=== PATIENT | female | born 2000 | race Caucasian/White ===

== ENCOUNTER 2020-10-12 22:03 | Inpatient (IN) ==
[2020-10-12] MEDS ORDERED: SODIUM CHLORIDE 0.9% 1000ML 1,000 ML IV STA (22:22)
[2020-10-12] MEDS ORDERED: KETOROLAC TROMETHAMINE 15 MG/ML VIAL IV STA (22:22)
--- NOTE | 2020-10-12 22:35 | Emergency Department Note ---
History of Present Illness General Chief complaint: Fever Stated complaint: BACK PAIN, NAUSEA, FEVER, LEG CRAMPS Time Seen by Provider: 10/12/20 22:10 Source: patient Mode of arrival: ambulatory Limitations: no limitations History of Present Illness Maximum Pain Intensity: 8 This patient is a 20-year-old female who presents to the emergency department for evaluation of fever and back pain. She states that she started a new control pill 1 month ago. She states that her period started 2 to 3 days ago. She states that since starting her period, she has had bad pain in her right lower back/flank. She does report she has some pain in the right lower abdomen with certain movements/sneezing or laughing. She has also been nauseous, lightheaded and feeling faint. She has felt intermittently hot and cold and feels very shaky. She admits to a history of anxiety and feels like some of the shakiness may be due to this. She states that her legs have felt crampy tonight. She has had a temperature up to 101 F. Patient has a history of asthma but states she is otherwise healthy. She denies urinary symptoms, trouble breathing, or flulike symptoms. She has been fully vaccinated for COVID-19. Home Medications Medication Instructions Recorded Confirmed Type albuterol sulfate [Ventolin HFA] 2 puff INHALATION DIRECTED PRN 08/05/18 10/12/20 History norethindrone-e.estradiol-iron 1 tab PO DAILY 08/05/18 10/12/20 History [[facility] Fe 07/29 ()] Allergies Allergy/AdvReac Type Severity Reaction Status Date / Time No Known Drug Allergies Allergy . Verified 10/13/20 03:48 Past Med/Surg History Medical History (Updated 10/13/20 @ 06:37 by Ashley Berkowitz PA-C) Asthma No known problems Surgical History No significant past surgical history Family History Other No known problems Social History Smoking Status: Never smoker Hx Alcohol Use: Yes Alcohol type: hard liquor Hx Substance Use: No Preferred Language: Nigerien Communication Ability: Effective Beliefs That Will Affect Care: None Current Living Situation: Other Current Living Situation Comment: lives with friends Feels Safe at Home: Yes Safety Concerns: Feels Safe At This Time Review of Systems A total of 10 systems reviewed and were otherwise negative Physical Exam Vital Signs Vital Signs - 24 hr 10/12/20 22:05 10/12/20 22:10 10/12/20 22:55 Temperature 37.9 C H Temperature Source Temporal Artery Scan Pulse Rate 142 H 108 H Pulse Rate [Apical] Pulse Rate from SpO2 Sensor 108 H Pulse Rhythm Regular Pulse Rhythm [Apical] Pulse Strength Normal Pulse Strength [Apical] Respiratory Rate 22 17 Respiratory Effort / Characteristics Non-Labored Non-Labored Spontaneous Respiratory Depth Normal Normal Respiratory Pattern Regular Regular Blood Pressure 141/86 H 142/93 H Blood Pressure [Right Arm] Blood Pressure Mean 104 109 Blood Pressure Mean [Right Arm] Blood Pressure Position Sitting Blood Pressure Position [Right Arm] Pulse Oximetry 100 100 Oxygen Delivery Method Room Air Room Air Sepsis Recent Fever Within 48 Hours Yes Sepsis New/Unexplained Change in Mental Status N/A Sepsis Action Taken by Nursing No Action Required 10/12/20 23:01 10/12/20 23:56 10/13/20 01:02 Temperature 39.6 C H 38.9 C H Temperature Source Oral Oral Pulse Rate 100 H Pulse Rate [Apical] 109 H Pulse Rate from SpO2 Sensor 102 H Pulse Rhythm Pulse Rhythm [Apical] Regular Pulse Strength Pulse Strength [Apical] Normal Respiratory Rate 17 23 Respiratory Effort / Characteristics Non-Labored Spontaneous Respiratory Depth Normal Respiratory Pattern Regular Blood Pressure 127/81 Blood Pressure [Right Arm] 142/93 H Blood Pressure Mean 96 Blood Pressure Mean [Right Arm] 109 Blood Pressure Position Blood Pressure Position [Right Arm] Sitting Pulse Oximetry 100 96 Oxygen Delivery Method Room Air Room Air Sepsis Recent Fever Within 48 Hours Sepsis New/Unexplained Change in Mental Status Sepsis Action Taken by Nursing 10/13/20 01:30 10/13/20 01:48 10/13/20 02:00 Temperature 37.9 C H Temperature Source Oral Pulse Rate 91 H 88 Pulse Rate [Apical] Pulse Rate from SpO2 Sensor 92 H Pulse Rhythm Pulse Rhythm [Apical] Pulse Strength Pulse Strength [Apical] Respiratory Rate 15 20 Respiratory Effort / Characteristics Respiratory Depth Respiratory Pattern Blood Pressure 110/82 136/84 Blood Pressure [Right Arm] Blood Pressure Mean 91 101 Blood Pressure Mean [Right Arm] Blood Pressure Position Blood Pressure Position [Right Arm] Pulse Oximetry 98 98 Oxygen Delivery Method Room Air Sepsis Recent Fever Within 48 Hours Sepsis New/Unexplained Change in Mental Status Sepsis Action Taken by Nursing VITALS: Vitals are noted on the nurse's note and reviewed by myself. GENERAL: This is a 20-year-old female, uncomfortable appearing, sitting up in bed. SKIN: The skin was without rashes. EARS: External auditory canals clear, tympanic membranes pearly andujar without erythema or effusion bilaterally. EYES: Pupils equal round and reactive to light and accommodation. NOSE: Patent, turbinates without inflammation or discharge. MOUTH: Mucous membranes moist. Tonsils are not enlarged. Pharynx without erythema or exudate. NECK: Supple without nuchal rigidity. No lymphadenopathy. HEART: Tachycardic, regular rhythm without murmurs gallops or rubs. LUNGS: Clear to auscultation bilaterally without wheezes, rales or rhonchi. ABDOMEN: Positive bowel sounds x 4. No guarding or rebound tenderness. NEURO: Patient was alert and oriented to person place and time. Course Consultations Consultation #1: Dr. Cardoso - [facility] [place] Administered Medications Acetaminophen (Acetaminophen 500 Mg Tab) 1,000 mg PO Q8H PRN PRN Reason: pain/fever Stop: 11/12/20 03:41 Last Admin: 10/13/20 03:53 Dose: 1,000 mg Documented by: [id number] Lactated Ringer's (Lr) 1,000 mls @ 100 mls/hr IV .Q10H LEXA Stop: 10/13/20 23:41 Last Admin: 10/13/20 03:53 Dose: 100 mls/hr Documented by: [id number] Piperacillin Sod/Tazobactam (Sod 3.375 gm/ Dextrose) 115 mls @ 28.75 mls/hr IV Q8H LEXA; Protocol Stop: 10/23/20 05:59 Last Infusion: 10/13/20 06:04 Dose: 28.8 mls/hr Documented by: [id number] Infusion: 10/13/20 05:51 Dose: 0 mls/hr Documented by: [id number] Admin: 10/13/20 05:50 Dose: 28.8 mls/hr Documented by: [id number] Discontinued Medications Sodium Chloride (Nss 1000ml) 1,000 mls @ 999 mls/hr IV .Q1H1M STA Stop: 10/12/20 23:22 Last Infusion: 10/12/20 23:30 Dose: 0 mls/hr Documented by: [id number] Admin: 10/12/20 23:08 Dose: 999 mls/hr Documented by: [id number] Acetaminophen (Ofirmev) 1,000 mg in 100 mls @ 400 mls/hr IV NOW STA Stop: 10/13/20 00:15 Last Infusion: 10/13/20 00:40 Dose: 0 mls/hr Documented by: [id number] Admin: 10/13/20 00:21 Dose: 400 mls/hr Documented by: [id number] Piperacillin Sod/Tazobactam Sod (Zosyn) 4.5 gm in 120 mls @ 240 mls/hr IV NOW ONE Stop: 10/13/20 01:47 Last Infusion: 10/13/20 02:25 Dose: 0 mls/hr Documented by: [id number] Admin: 10/13/20 01:55 Dose: 240 mls/hr Documented by: [id number] Sodium Chloride (Nss 1000ml) 1,000 mls @ 999 mls/hr IV .Q1H1M ONE Stop: 10/13/20 02:23 Last Infusion: 10/13/20 03:57 Dose: 0 mls/hr Documented by: [id number] Admin: 10/13/20 01:55 Dose: 999 mls/hr Documented by: [id number] Ioversol (Ioversol 100ml) 100 ml IV ONCE ONE Stop: 10/13/20 00:47 Last Admin: 10/13/20 00:47 Dose: 93 ml Documented by: [id number] Ketorolac Tromethamine (Ketorolac Tromethamine 15 Mg/Ml Vial) 15 mg IV NOW STA Stop: 10/12/20 22:23 Last Admin: 10/12/20 23:07 Dose: 15 mg Documented by: [id number] Medical Decision Making Differential Diagnosis Sepsis, UTI, pneumonia, metabolic, electrolyte abnormalities, cardiac sources, intracerebral event, toxicologic, neurologic, as well as other pathologies. Home Medications Current Medication List: was personally reviewed by me Laboratory Data Attestation: I reviewed the patient's lab results. Result diagrams: 10/12/20 22:46 10/12/20 22:46 Lab Results 10/12/20 10/12/2010/12/21 Range/Units 22:46 22:46 22:46 WBC 10.22 (4.8-10.8) K/uL RBC 4.77 (4.2-5.4) M/uL Hgb 15.0 (12.0-16.0) g/dL Hct 42.7 (37-47) % MCV 89.5 (80-100) fL MCH 31.4 (25-34) pg MCHC 35.1 (32-36) g/dL RDW Std Deviation 40.8 (36.4-46.3) fL RDW Coeff of Rayna 12.5 (11.5-14.5) % Plt Count 295 (130-400) K/uL MPV 9.8 (7.4-10.4) fL Immature Gran % (Auto) 0.2 % Neut % (Auto) 83.0 % Lymph % (Auto) 8.0 % Pepin % (Auto) 8.4 % Eos % (Auto) 0.3 % Baso % (Auto) 0.1 % Neut # (Auto) 8.48 H (1.4-6.5) K/uL Lymph # (Auto) 0.82 L (1.2-3.4) K/uL Pepin # (Auto) 0.86 H (0.11-0.59) K/uL Eos # (Auto) 0.03 (0-0.5) K/uL Baso # (Auto) 0.01 (0-0.2) K/uL Immature Gran # (Auto) 0.02 (0.00-0.02) K/uL D-Dimer 250 (0-500) ug/L FEU Sodium 134 L (136-145) mmol/L Potassium 3.5 (3.5-5.1) mmol/L Chloride 102 (98-107) mmol/L Carbon Dioxide 22 (21-32) mmol/L Anion Gap 10.0 (3-11) BUN 10 (7-18) mg/dl Creatinine 0.96 (0.6-1.2) mg/dl Est Cr Clr Drug Dosing 80.7 ml/min Est GFR ( Amer) 98.7 Est GFR (Non-Af Amer) 85.1 BUN/Creatinine Ratio 10.1 (10-20) Glucose 104 H (70-99) mg/dl Lactate (0.4-2.0) mmol/L Calcium 9.6 (8.5-10.1) mg/dl Total Bilirubin 0.6 (0.2-1) mg/dl AST 14 L (15-37) U/L ALT 28 (12-78) U/L Alkaline Phosphatase 144 H (45-117) U/L Total Protein 8.3 H (6.4-8.2) gm/dl Albumin 3.9 (3.4-5.0) gm/dl Globulin 4.4 H (2.5-4.0) gm/dl Albumin/Globulin Ratio 0.9 (0.9-2) Urine Color Urine Appearance (Clear) Urine pH (4.5-7.5) Ur Specific Mccomb (1.000-1.030) Urine Protein (Negative) Urine Glucose (UA) (Negative) Urine Ketones (Negative) Urine Blood (Negative) Urine Nitrite (Negative) Urine Bilirubin (Negative) Urine Urobilinogen (Negative) Ur Leukocyte Esterase (Negative) Urine WBC (Auto) (0-5) /hpf Urine RBC (Auto) (0-4) /hpf U Hyaline Cast (Auto) (0-5) /lpf U Epithel Cells (Auto) (0-5) /lpf Urine Bacteria (Auto) (Negative) Urine Test (Negative) POC Ur Test COVID-19 Eval Order SARS-CoV-2 (PCR) (Negative) Influenza Type A (PCR) (Neg) Influenza Type B (PCR) (Neg) RSV (RT-PCR) (Neg) 10/12/20 10/12/20 10/12/20 Range/Units 22:46 23:05 23:05 WBC (4.8-10.8) K/uL RBC (4.2-5.4) M/uL Hgb (12.0-16.0) g/dL Hct (37-47) % MCV (80-100) fL MCH (25-34) pg MCHC (32-36) g/dL RDW Std Deviation (36.4-46.3) fL RDW Coeff of Rayna (11.5-14.5) % Plt Count (130-400) K/uL MPV (7.4-10.4) fL Immature Gran % (Auto) % Neut % (Auto) % Lymph % (Auto) % Pepin % (Auto) % Eos % (Auto) % Baso % (Auto) % Neut # (Auto) (1.4-6.5) K/uL Lymph # (Auto) (1.2-3.4) K/uL Pepin # (Auto) (0.11-0.59) K/uL Eos # (Auto) (0-0.5) K/uL Baso # (Auto) (0-0.2) K/uL Immature Gran # (Auto) (0.00-0.02) K/uL D-Dimer (0-500) ug/L FEU Sodium (136-145) mmol/L Potassium (3.5-5.1) mmol/L Chloride (98-107) mmol/L Carbon Dioxide (21-32) mmol/L Anion Gap (3-11) BUN (7-18) mg/dl Creatinine (0.6-1.2) mg/dl Est Cr Clr Drug Dosing ml/min Est GFR ( Amer) Est GFR (Non-Af Amer) BUN/Creatinine Ratio (10-20) Glucose (70-99) mg/dl Lactate 2.8 H* (0.4-2.0) mmol/L Calcium (8.5-10.1) mg/dl Total Bilirubin (0.2-1) mg/dl AST (15-37) U/L ALT (12-78) U/L Alkaline Phosphatase (45-117) U/L Total Protein (6.4-8.2) gm/dl Albumin (3.4-5.0) gm/dl Globulin (2.5-4.0) gm/dl Albumin/Globulin Ratio (0.9-2) Urine Color Urine Appearance (Clear) Urine pH (4.5-7.5) Ur Specific M[place]omb (1.000-1.030) Urine Protein (Negative) Urine Glucose (UA) (Negative) Urine Ketones (Negative) Urine Blood (Negative) Urine Nitrite (Negative) Urine Bilirubin (Negative) Urine Urobilinogen (Negative) Ur Leukocyte Esterase (Negative) Urine WBC (Auto) (0-5) /hpf Urine RBC (Auto) (0-4) /hpf U Hyaline Cast (Auto) (0-5) /lpf U Epithel Cells (Auto) (0-5) /lpf Urine Bacteria (Auto) (Negative) Urine Test (Negative) POC Ur Test COVID-19 Eval Order [facility]sv at [facility] SARS-CoV-2 (PCR) NEGATIVE (Negative) Influenza Type A (PCR) Negative (Neg) Influenza Type B (PCR) Negative (Neg) RSV (RT-PCR) Negative (Neg) 10/12/20 10/12/20 10/12/20 Range/Units 23:39 23:39 23:39 WBC (4.8-10.8) K/uL RBC (4.2-5.4) M/uL Hgb (12.0-16.0) g/dL Hct (37-47) % MCV (80-100) fL MCH (25-34) pg MCHC (32-36) g/dL RDW Std Deviation (36.4-46.3) fL RDW Coeff of Rayna (11.5-14.5) % Plt Count (130-400) K/uL MPV (7.4-10.4) fL Immature Gran % (Auto) % Neut % (Auto) % Lymph % (Auto) % Pepin % (Auto) % Eos % (Auto) % Baso % (Auto) % Neut # (Auto) (1.4-6.5) K/uL Lymph # (Auto) (1.2-3.4) K/uL Pepin # (Auto) (0.11-0.59) K/uL Eos # (Auto) (0-0.5) K/uL Baso # (Auto) (0-0.2) K/uL Immature Gran # (Auto) (0.00-0.02) K/uL D-Dimer (0-500) ug/L FEU Sodium (136-145) mmol/L Potassium (3.5-5.1) mmol/L Chloride (98-107) mmol/L Carbon Dioxide (21-32) mmol/L Anion Gap (3-11) BUN (7-18) mg/dl Creatinine (0.6-1.2) mg/dl Est Cr Clr Drug Dosing ml/min Est GFR ( Amer) Est GFR (Non-Af Amer) BUN/Creatinine Ratio (10-20) Glucose (70-99) mg/dl Lactate (0.4-2.0) mmol/L Calcium (8.5-10.1) mg/dl Total Bilirubin (0.2-1) mg/dl AST (15-37) U/L ALT (12-78) U/L Alkaline Phosphatase (45-117) U/L Total Protein (6.4-8.2) gm/dl Albumin (3.4-5.0) gm/dl Globulin (2.5-4.0) gm/dl Albumin/Globulin Ratio (0.9-2) Urine Color Yellow Urine Appearance Clear (Clear) Urine pH 8.5 H (4.5-7.5) Ur Specific Mccomb 1.010 (1.000-1.030) Urine Protein Negative (Negative) Urine Glucose (UA) Negative (Negative) Urine Ketones Negative (Negative) Urine Blood 2+ H (Negative) Urine Nitrite Negative (Negative) Urine Bilirubin Negative (Negative) Urine Urobilinogen Negative (Negative) Ur Leukocyte Esterase Trace H (Negative) Urine WBC (Auto) 10-30 H (0-5) /hpf Urine RBC (Auto) 5-10 H (0-4) /hpf U Hyaline Cast (Auto) 0 (0-5) /lpf U Epithel Cells (Auto) 10-20 H (0-5) /lpf Urine Bacteria (Auto) Negative (Negative) Urine Test Negative (Negative) POC Ur Test Cancelled COVID-19 Eval Order SARS-CoV-2 (PCR) (Negative) Influenza Type A (PCR) (Neg) Influenza Type B (PCR) (Neg) RSV (RT-PCR) (Neg) 10/13/20 Range/Units 02:04 WBC (4.8-10.8) K/uL RBC (4.2-5.4) M/uL Hgb (12.0-16.0) g/dL Hct (37-47) % MCV (80-100) fL MCH (25-34) pg MCHC (32-36) g/dL RDW Std Deviation (36.4-46.3) fL RDW Coeff of Rayna (11.5-14.5) % Plt Count (130-400) K/uL MPV (7.4-10.4) fL Immature Gran % (Auto) % Neut % (Auto) % Lymph % (Auto) % Pepin % (Auto) % Eos % (Auto) % Baso % (Auto) % Neut # (Auto) (1.4-6.5) K/uL Lymph # (Auto) (1.2-3.4) K/uL Pepin # (Auto) (0.11-0.59) K/uL Eos # (Auto) (0-0.5) K/uL Baso # (Auto) (0-0.2) K/uL Immature Gran # (Auto) (0.00-0.02) K/uL D-Dimer (0-500) ug/L FEU Sodium (136-145) mmol/L Potassium (3.5-5.1) mmol/L Chloride (98-107) mmol/L Carbon Dioxide (21-32) mmol/L Anion Gap (3-11) BUN (7-18) mg/dl Creatinine (0.6-1.2) mg/dl Est Cr Clr Drug Dosing ml/min Est GFR ( Amer) Est GFR (Non-Af Amer) BUN/Creatinine Ratio (10-20) Glucose (70-99) mg/dl Lactate 1.0 (0.4-2.0) mmol/L Calcium (8.5-10.1) mg/dl Total Bilirubin (0.2-1) mg/dl AST (15-37) U/L ALT (12-78) U/L Alkaline Phosphatase (45-117) U/L Total Protein (6.4-8.2) gm/dl Albumin (3.4-5.0) gm/dl Globulin (2.5-4.0) gm/dl Albumin/Globulin Ratio (0.9-2) Urine Color Urine Appearance (Clear) Urine pH (4.5-7.5) Ur Specific Mccomb (1.000-1.030) Urine Protein (Negative) Urine Glucose (UA) (Negative) Urine Ketones (Negative) Urine Blood (Negative) Urine Nitrite (Negative) Urine Bilirubin (Negative) Urine Urobilinogen (Negative) Ur Leukocyte Esterase (Negative) Urine WBC (Auto) (0-5) /hpf Urine RBC (Auto) (0-4) /hpf U Hyaline Cast (Auto) (0-5) /lpf U Epithel Cells (Auto) (0-5) /lpf Urine Bacteria (Auto) (Negative) Urine Test (Negative) POC Ur Test COVID-19 Eval Order SARS-CoV-2 (PCR) (Negative) Influenza Type A (PCR) (Neg) Influenza Type B (PCR) (Neg) RSV (RT-PCR) (Neg) Imaging Data Attestation: I personally reviewed and interpreted this imaging study as follows: Radiologist's Impression: CT ABDOMEN & PELVIS With Contrast: No prior exam for comparison. Impression: Right-sided and possible left-sided pyelonephritis. No acute appendicitis or bowel obstruction. Clear lung bases. Normal cardiac size. Normal gallbladder and biliary system. Normal spleen, liver, pancreas and bilateral adrenal glands. Areas of the irregular attenuation with subtle hypodensities within the right renal parenchyma concerning for pyelonephritis. Mild enhancement of the wall to the proximal uterus consistent with infectious process. Possible very early early pyelonephritis within the left kidney. No hydronephrosis. Unremarkable stomach. Mild diffuse distention of the small bowel loops up to a diameter of 2.0 cm which may indicate ileus versus enteritis. Normal appendix. Anteverted uterus. No bowel obstruction. Unremarkable bony structures. No free fluid. Radiologist: Debra Thayer MD ADDENDUM - Added by Debra Thayer MD on 10/13/2020 2:15 AM (-07:00) A typing error is identified. Please disregard the following: Mild enhancement of the wall to the proximal uterus consistent with infectious process. The correct sentence is: Mild enhancement of the wall through the proximal ureter consistent with infectious process. MDM Narrative Continuous monitor car operator: Order was placed for continuous monitor car operator. Patient was placed on the monitor car operator. Patient was noted to be in sinus tachycardia at an initial rate of 140 bpm. The patient is a 20-year-old female who presents today complaining of right flank pain, vomiting and fevers. Labs revealed no leukocytosis, but patient did have an elevated lactic acid of 2.8. Patient CT scan does show evidence of pyelonephritis, although interestingly the urinalysis does not appear overtly infected. This was sent for culture. Patient given IV Zosyn empirically. She received IV normal saline at 30 mL/kg. She was given Toradol and Tylenol. [facility] the patient for further care. Impression & Plan Sepsis, Pyelonephritis Discharge Plan Visit Data Chief Complaint: Fever Stated Complaint: BACK PAIN, NAUSEA, FEVER, LEG CRAMPS ED Provider: Dayo Gusman ED Midlevel Provider: Ashley Berkowitz Discharge Problem: Sepsis, Pyelonephritis Patient Disposition: Admitted As Inpatient Discharge Instructions Interventions: ED Discharge Assessment Last Done: 10/13/20 03:03 Discharge Problem: Sepsis Qualifiers: Sepsis type: sepsis due to unspecified organism Sepsis acute organ dysfunction status: without acute organ dysfunction Qualified Code(s): A41.9 - Sepsis, unspecified organism
[2020-10-12 23:00] LABS: Basophils # (auto) 0.01 K/uL (0-0.2); Basophils % (auto) 0.1 %; Eosinophils # (auto) 0.03 K/uL (0-0.5); Eosinophils % (auto) 0.3 %; Hematocrit (blood only) 42.7 % (37-47); Immature Granulocytes # (auto) 0.02 K/uL (0.00-0.02); Immature Granulocytes % (auto) 0.2 %; Lymphocytes # (auto) 0.82 K/uL (1.2-3.4); Mean Corpuscular Hemoglobin 31.4 pg (25-34); Mean Corpuscular Hgb Conc 35.1 g/dL (32-36); Mean Corpuscular Volume 89.5 fL (80-100); Mean Platelet Volume 9.8 fL (7.4-10.4); Monocytes # (auto) 0.86 K/uL (0.11-0.59); Monocytes % (auto) 8.4 %; Neutrophils # (auto) 8.48 K/uL (1.4-6.5); Platelet Count 295 K/uL (130-400); RDW Coefficient of Variation 12.5 % (11.5-14.5); RDW Standard Deviation 40.8 fL (36.4-46.3); Red Blood Count 4.77 M/uL (4.2-5.4); White Blood Count 10.22 K/uL (4.8-10.8)
[2020-10-12 23:15] LABS: D Dimer 250 ug/L FEU (0-500)
[2020-10-12 23:21] LABS: Albumin Level 3.9 gm/dl (3.4-5.0); BUN Creatinine Ratio 10.1 (10-20); Calcium 9.6 mg/dl (8.5-10.1); Creatinine Clr Calc Pharmacy 80.7 ml/min; Est GFR (African American) 98.7; Est GFR (Non-African American) 85.1; Potassium 3.5 mmol/L (3.5-5.1)
[2020-10-12 23:24] LABS: Albumin Globulin Ratio 0.9 (0.9-2); Bilirubin,Total 0.6 mg/dl (0.2-1); Globulin 4.4 gm/dl (2.5-4.0); Total Protein 8.3 gm/dl (6.4-8.2)
[2020-10-12 23:55] LABS: Appearance Urine Clear (Clear); Bacteria Urine Automated Negative (Negative); Bilirubin Urine Negative (Negative); Blood Urine 2+ (Negative); Cast Urine Automated 0 /lpf (0-5); Color Urine Yellow; Glucose Urine UA Negative (Negative); Ketones Urine Negative (Negative); Leukocyte Esterase Urine Trace (Negative); Nitrite Urine Negative (Negative); Protein Urine Negative (Negative); Urobilinogen Urine Negative (Negative); pH Urine 8.5 (4.5-7.5)
[2020-10-13] MEDS ORDERED: ACETAMINOPHEN 1,000 MG/100 ML VIAL IV STA (00:01)
[2020-10-13 00:26] LABS: Influenza A virus by PCR Negative (Neg); Influenza B virus by PCR Negative (Neg); RSV by PCR Negative (Neg); SARS CoV2 RNA(COVID-19) InHosp NEGATIVE (Negative)
[2020-10-13 00:28] LABS: Pregnancy Test, Urine Negative (Negative)
[2020-10-13] MEDS ORDERED: OPTIRAY 320 100ml IV ONE (00:46)
[2020-10-13] MEDS ORDERED: PIPERACILLIN/TAZOBACTAM 4.5 GM/120 ML BAG IV ONE (01:18)
[2020-10-13] MEDS ORDERED: PIPERACILL/TAZOBAC CONSULT ACTIVE PRN ×2 (01:18→03:42)
[2020-10-13] MEDS ORDERED: SODIUM CHLORIDE 0.9% 1000ML 1,000 ML IV ONE ×2 (01:23→12:50)
--- NOTE | 2020-10-13 02:26 | History & Physical Report ---
Date of Service October 13, 2020 Assessment & Plan (1) Pyelonephritis: Patient is a 20 year old female with PMHx Asthma that presents with 3 day history of R low back pain with worsening progression and fever of 101F on day of admission. CT imaging of abdomen and pelvis concerning for R sided P yelonephritis. Sepsis secondary to R Pyelonephritis -CT/Ab pelvis statrad concerning for R pyelonephritis with possibly early development of L pyelonephritis -UA appears contaminated with epithelial cells, but otherwise less indicative of infection. Urine culture pending. -Would check final read and possibly discuss with radiology in regards to the possibility that the R ureter is not draining secondary to inflammation from pyelonephritis. No obvious hydroureter noted on my review of the CT scan, however, should minimal urine pass the R ureter, similar to an obstructing stone, may affect the UA into having a false negative. -Should an obstruction be seen on the final read, consider consulting Urology for possible stent placement/cystoscopy. -PID less likely based on patients history and frequent offenders should be covered with Zosyn. -Lactic 2.8 on admission, repeat 1 after fluids. -Patient fluid resuscitated the required 30ml/kg in ED with 2L NSS -Will continue hydration with LR 100ml/hr x2L -Started on Zosyn IV in the ED, continue Zosyn IV q6h -Zofran PRN nausea -Tylenol 1000mg q8H PRN for fever Asthma -Albuterol PRN Dispo: Med/Surg for IV antibiotics, suspect relatively short stay and transition to PO antibiotics as long as patients symptoms improve. FEN: Regular diet, LR 100ml/hr x2L DVT: SCDs Code: Full (2) Sepsis: (3) Asthma: History of Present Illness Chief Complaint: R back pain, fever Primary Care Provider: [facility] Patient is a 20 year old female with PMHx Asthma that presents with 3 day history of R low back pain with worsening progression and fever of 101F on day of admission. Patient notes that on 10/09/20 she started experiencing some low back pain worse on the R than L. She states that she recently switched control 1 month ago as her previous control gave her back pain and she felt that this current one was causing the same symptoms. Earlier this morning she experienced nausea which progressively worsened until around 20:00 she was having fevers, chills, and rigors. She also felt that she was having more bowel movements today. She notes that she took her temperature around 22:00 and it was 101F. Upon presentation to the ED she was found to be febrile with TMax 39.6C and was given IV tylenol and NSS boluses. She was also given Toradol for her pain. CT imaging was concerning for a R sided pyelonephritis and early onset of L sided pyelo, however, interestingly enough her UA was relatively clean and negative for acute infections. Upon my evaluation patient stated that she was feeling significantly better and that her pain had improved to a 4/10. She currently still notes fever, occasional chills, R low back pain, R low abdominal pain. She denies chest pain, SOB, headache, nausea, vomiting, diarrhea. Med Hx: Asthma Surg Hx: Bilateral inguinal hernia repair and umbilical hernia repair at age 5 Soc Hx: No tobacco or illicit drug use. Has roughly 16 shots of vodka on the weekends. Notes she is sexually active with her boyfriend alone, last coitus 10/09/20. Recently checked for STDs 1 month ago which was negative and has only been sexually active with aforementioned boyfriend since that time. No concerns of infidelity. Allergies Allergy/AdvReac Type Severity Reaction Status Date / Time No Known Drug Allergies Allergy . Verified 10/13/20 03:48 Home Medications Medication Instructions Recorded Confirmed Type albuterol sulfate [Ventolin HFA] 2 puff INHALATION DIRECTED PRN 08/05/18 10/12/20 History norethindrone-e.estradiol-iron 1 tab PO DAILY 08/05/18 10/12/20 History [Vaiden Fe 07/29 (28)] amoxicillin-pot clavulanate 1 tab PO BID 6 Days #12 tab 10/17/20 Rx [Augmentin] Past Med/Surg History Medical History (Updated 10/18/20 @ 00:08 by Jose Daniel Sebastian) Asthma Pyelonephritis Sepsis Surgical History No significant past surgical history Family History Other No known problems Social History Smoking Status: Never smoker Hx Alcohol Use: Yes Alcohol type: hard liquor Hx Substance Use: No Preferred Language: Swedish Communication Ability: Effective Beliefs That Will Affect Care: None Current Living Situation: Other Current Living Situation Comment: lives with friends Feels Safe at Home: Yes Safety Concerns: Feels Safe At This Time Assistive Devices: None Review of Systems Review of Systems: All systems reviewed & are unremarkable except as noted in Subjective Physical Exam Constitutional: well developed and well nourished; no acute distress Eyes: PERRL, conjunctivae normal, anicteric sclerae ENMT: external ear and nose normal, oropharynx normal Neck: trachea midline, no thyromegaly Respiratory: normal respiratory effort, lungs clear to auscultation Cardiovascular: RRR, no murmur, no edema Gastrointestinal (Abdomen): Inspection/Auscultation: abdomen normal to i nspection and normal bowel sounds; abdomen not distended Percussion/Palpation: + abdomen tender (slight TTP in the RLQ) and abdomen soft; no guarding and abdomen not rigid Musculoskeletal: no cyanosis or clubbing, extremities motor strength 5/5 Skin: no rashes, warm and dry Neurologic: PERRL, EOMI, accommodation nl, no face palsy, no dysarthria Psychiatric: A+Ox3, euthymic affect Genitourinary: + CVA tenderness (on the r ) Results & Data Results & Data ([facility]) Vital Signs (Past 12 Hours) Vital Signs Temp Pulse Pulse Resp BP BP Pulse Ox 10/13/20 01:48 37.9 C H 10/13/20 01:30 91 H 15 110/82 98 10/13/20 01:02 100 H 23 127/81 96 10/12/20 23:56 38.9 C H 10/12/20 23:01 39.6 C H 109 H 17 142/93 H 100 10/12/20 22:55 108 H 17 142/93 H 100 10/12/20 22:05 37.9 C H 142 H 22 141/86 H 100 Code Status & VTE Plan VTE Prophylaxis Plan VTE Prophylaxis will be ordered: Yes Supervising Physician Co-Signing Physician Notes Attending addendum: I have physically seen this patient, have supervised the medical residents activities, and agree with the H&P unless as otherwise noted. Assessment and Plan: Pyelonephritis on right side/sepsis- CT abdomen pelvis confirmed right pyelonephritis, with possible early left pyelonephritis. Urinalysis may be contaminated, will follow urine culture and sensitivities Empiric Zosyn 4.5 g IV every 8 hours Acetaminophen 650 mg p.o. every 6 hours as needed mild pain or fever Zofran 4 mg IV every 6 hours as needed She did receive 2 L normal saline in the ED. We will continue rehydration with LR at 100 mils per hour x2 L Additional diagnoses considered included PID Remaining orders and notations as noted Resident Activity Tracking Resident Involvement: Resident Care Provided Care Provided: Adult Hospital Medicine
[2020-10-13] MEDS ORDERED: ALBUTEROL HFA 8 GM INHALER INH PRN (03:42)
[2020-10-13] MEDS: ACETAMINOPHEN 500 MG TAB PO PRN ×3 (03:53→21:58)
[2020-10-13] MEDS: LACTATED RINGER'S 1,000 ML IV SCH ×2 (03:53→15:08)
[2020-10-13] MEDS: PIPERACILLIN/TAZOBACTAM 3.375 GM in DEXTROSE 5% 100 ML IV SCH ×3 (05:50→21:52)
--- NOTE | 2020-10-13 06:41 | Hospitalist Progress Note ---
Date of Service October 13, 2020 Assessment & Plan (1) Pyelonephritis: Patient is a 20 year old female with PMHx Asthma that presents with 3 day history of R low back pain with worsening progression and fever of 101F on day of admission. CT imaging of abdomen and pelvis concerning for R sided P yelonephritis. Sepsis secondary to R Pyelonephritis -CT/Ab pelvis statrad concerning for R pyelonephritis with possibly early development of L pyelonephritis -UA appears contaminated with epithelial cells, but otherwise less indicative of infection. Urine culture pending. -Would check final read and possibly discuss with radiology in regards to the possibility that the R ureter is not draining secondary to inflammation from pyelonephritis. No obvious hydroureter noted on my review of the CT scan, however, should minimal urine pass the R ureter, similar to an obstructing stone, may affect the UA into having a false negative. -Should an obstruction be seen on the final read, consider consulting Urology for possible stent placement/cystoscopy. -PID less likely based on patients history and frequent offenders should be covered with Zosyn. -Lactic 2.8 on admission, repeat 1 after fluids. -Patient fluid resuscitated the required 30ml/kg in ED with 2L NSS -Will continue hydration with LR 100ml/hr x2L -Started on Zosyn IV in the ED, continue Zosyn IV q6h -Zofran PRN nausea -Tylenol 1000mg q8H PRN for fever Asthma -Albuterol PRN Dispo: Med/Surg for IV antibiotics, suspect relatively short stay and transition to PO antibiotics as long as patients symptoms improve. FEN: Regular diet, LR 100ml/hr x2L DVT: SCDs Code: Full Admission and Anticipated Discharge Date Admission Date: October 13, 2020 Results & Data Results & Data ([facility]) Vital Signs (Past 12 Hours) Vital Signs Temp Pulse Pulse Resp BP BP Pulse Ox 10/13/20 06:16 36.7 C 10/13/20 04:11 38.4 C H 117 H 14 156/97 H 98 10/13/20 03:00 100 10/13/20 02:00 88 20 136/84 98 10/13/20 01:48 37.9 C H 10/13/20 01:30 91 H 15 110/82 98 10/13/20 01:02 100 H 23 127/81 96 10/12/20 23:56 38.9 C H 10/12/20 23:01 39.6 C H 109 H 17 142/93 H 100 10/12/20 22:55 108 H 17 142/93 H 100 10/12/20 22:05 37.9 C H 142 H 22 141/86 H 100
--- NOTE | 2020-10-13 07:19 | CT Scan Report ---
CT abd pelvis IV con only CLINICAL HISTORY: right flank pain, fever COMPARISON STUDY: None. TECHNIQUE: The patient was scanned in a dynamic helical fashion during intravenous administration of 93 cc of Optiray 320 A dose lowering technique was utilized adhering to the principles of ALARA. CT DOSE: 351.32 mGy.cm FINDINGS: Lower chest: The heart is normal in size and configuration, without pericardial effusion. The lung ba ses and pleural spaces are clear. Liver: The contrast-enhanced liver is normal in size, contour, and attenuation. There is no intrahepa tic biliary ductal dilatation. The hepatic veins and portal veins are patent. Gallbladder: Unremarkable. Spleen: Normal in size and attenuation. Pancreas: Unremarkable. Adrenal glands: Unremarkable. Kidneys: There is heterogeneous right renal enhancement in a pattern suggestive of pyelonephritis. In addition there is mild uroepithelial enhancement of the renal pelvis and proximal ureter. No obstruc ting calculi are visualized. Bowel: There are no transition zones to indicate bowel obstruction. There are fluid-filled small ang l loops with small bowel feces. The findings likely are secondary to an ileus. An enteritis could jossie ear similar but is statistically less likely. The appendix appears normal. There is no acute divertic ulitis. Peritoneum: There is trace free pelvic fluid likely physiologic. There is no free intraperitoneal air Vasculature: The abdominal aorta is normal in course and caliber. Adenopathy: None. Pelvic viscera: The bladder, and pelvic viscera are unremarkable. Skeletal structures: No destructive osseous lesions are seen. IMPRESSION: 1. No evidence of bowel obstruction. No evidence of free air 2. Heterogeneous right renal enhancement consistent with pyelonephritis 3. No obstructing calculi identified 4. Suspected mild ileus ACT 112: Negative or not required by law. Electronically signed by: Dakota Chavarria M.D. 10/13/2020 7:17 AM
[2020-10-13] MEDS: KETOROLAC TROMETHAMINE 15 MG/ML VIAL IV PRN ×2 (08:04→15:03)
--- NOTE | 2020-10-13 11:49 | Medical Student Progress Note ---
Date of Service October 13, 2020 Assessment & Plan (1) Pyelonephritis: Sepsis secondary to pyelonephritis. Patient presented with fever, chills and right flank pain.CT scan in the ER revealed evidence of right sided pyelonephritis as well as possible left sided involvement without evidence of urinary tract obstruction Urinalysis was positive for RBCs, WBCs and trace leukocyte esterase. Urine and Blood culture is still pending Lactic acid is 1.0, down from 2.8 at admission Patient was febrile earlier this morning IV Zosyn q6 was started and would be continued Zofran PRN was added for nausea Ketorolac PRN is available for pain and fever control Once microbiology results return, antibiotic would be narrowed depending on the culture. Present on Admission?: No (2) Asthma: Mild intermittent - continue Albuterol PRN Present on Admission?: Yes (3) No known problems: Dispo: Continue IV antibiotics. anticipate d/c home in 24-48hrs Fluids: Lactated Ringer 100ml/hr x 2L Electrolyte: Electrolytes within normal limits Nutrition: Vegetarian diet, DVT: Ambulatory Code: Full Supervising Attestation Medical Student Supervision Note: I was personally present during medical student patient encounter and independently interviewed and examined the patient and verified the heredia history and physical, reviewed labs and image studies, discussed the case with Fortunato Leon and agree with the findings and care plan. Acute pyelonephritis- Continue IV abx, pain and fever control - anticipate d/c once fever subsides on oral abx. Subjective Patient is a 20 y/o F currently on hospital day 1 after having been admitted for pyelonephritis. Patient experienced a transient episode of fever & chills yesterday night and another episode this morning. She does acknowledge nausea but attributes it to not eating for the past days. Patient denies any headache, palpitations, shortness of breath, dysuria, urinary urgency, difficulty with bowel movements or difficulty with urination Review of Systems Review of Systems: All systems reviewed & are unremarkable except as noted in HPI & below Constitutional: as per Subjective / HPI Respiratory: as per Subjective / HPI Cardiovascular: as per Subjective / HPI Gastrointestinal: as per Subjective / HPI Genitourinary: as per Subjective / HPI Physical Exam Constitutional: WD/WN, vitals as above in mild distress. can't find a comfortable position to lie in. Respiratory: normal respiratory effort, lungs clear to auscultation Cardiovascular: RRR, no murmur, no edema Gastrointestinal (Abdomen): Inspection/Auscultation: abdomen normal to inspection and normal bowel sounds Percussion/Palpation: + abdomen tender (mild tenderness in the right lower quadrant) Genitourinary: + CVA tenderness (Right sided CVA tenderness) Results & Data ([facility]) Vital Signs (Past 12 Hours) Vital Signs Temp Pulse Pulse Resp BP BP Pulse Ox 10/13/20 11:25 37.2 C 103 H 18 108/72 96 10/13/20 09:18 37.9 C H 10/13/20 08:14 38.9 C H 10/13/20 07:06 37.5 C 101 H 18 114/75 100 10/13/20 06:16 36.7 C 10/13/20 04:11 38.4 C H 117 H 14 156/97 H 98 10/13/20 03:00 100 10/13/20 02:00 88 20 136/84 98 10/13/20 01:48 37.9 C H 10/13/20 01:30 91 H 15 110/82 98 10/13/20 01:02 100 H 23 127/81 96 10/12/20 23:56 38.9 C H
[2020-10-13] MEDS: MoRPHine SULFATE 2 MG/ML CARP IV PRN ×3 (12:34→21:53)
[2020-10-13] MEDS: ONDANSETRON INJ 2 MG/ML 2 ML VIAL IV PRN ×2 (12:37→22:00)
--- NOTE | 2020-10-13 13:10 | XRay Report ---
XR chest 1V portable HISTORY: 20 years-old Female Sensation of shorntess of breath acute shortness of breath COMPARISON: CT abdomen and pelvis of same day, chest radiographs 10/01/2018 TECHNIQUE: AP view of the chest. FINDINGS: Cardiomediastinal and hilar silhouettes are within normal limits. No pneumothorax, pleural effusion, airspace consolidation or overt pulmonary edema. Bones of the chest appear normal. IMPRESSION: Normal exam. ACT 112: Negative or not required by law. The above report was generated using voice recognition software. It may contain grammatical, syntax o r spelling errors. Electronically signed by: Dread Cain M.D. 10/13/2020 1:09 PM
[2020-10-13] MEDS: LORATADINE 10 MG TAB PO SCH ×2 (15:10)
[2020-10-13] MEDS ORDERED: KETOROLAC 30 MG/ML VIAL IV ONE (18:17)
[2020-10-13] MEDS: KETOROLAC 30 MG/ML VIAL IV PRN (23:16)
[2020-10-14] MEDS: PIPERACILLIN/TAZOBACTAM 3.375 GM in DEXTROSE 5% 100 ML IV SCH (06:06)
[2020-10-14 06:16] LABS: Basophils # (auto) 0.02 K/uL (0-0.2); Basophils % (auto) 0.2 %; Eosinophils # (auto) 0.02 K/uL (0-0.5); Eosinophils % (auto) 0.2 %; Hemoglobin 12.8 g/dL (12.0-16.0); Immature Granulocytes # (auto) 0.01 K/uL (0.00-0.02); Immature Granulocytes % (auto) 0.1 %; Lymphocytes # (auto) 1.73 K/uL (1.2-3.4); Lymphocytes % (auto) 15.5 %; Mean Corpuscular Hemoglobin 30.7 pg (25-34); Mean Corpuscular Hgb Conc 33.7 g/dL (32-36); Mean Corpuscular Volume 91.1 fL (80-100); Mean Platelet Volume 9.7 fL (7.4-10.4); Monocytes # (auto) 1.29 K/uL (0.11-0.59); Monocytes % (auto) 11.6 %; Neutrophils # (auto) 8.09 K/uL (1.4-6.5); Neutrophils % (auto) 72.4 %; Platelet Count 222 K/uL (130-400); RDW Coefficient of Variation 13.3 % (11.5-14.5); RDW Standard Deviation 44.4 fL (36.4-46.3); Red Blood Count 4.17 M/uL (4.2-5.4); White Blood Count 11.16 K/uL (4.8-10.8)
[2020-10-14 06:41] LABS: BUN Creatinine Ratio 8.7 (10-20); Calcium 8.4 mg/dl (8.5-10.1); Creatinine Clr Calc Pharmacy 117.4 ml/min; Est GFR (African American) 147.4; Est GFR (Non-African American) 127.2; Potassium 3.7 mmol/L (3.5-5.1)
[2020-10-14] MEDS: LORATADINE 10 MG TAB PO SCH (07:46)
[2020-10-14] MEDS: KETOROLAC 30 MG/ML VIAL IV PRN ×3 (07:48→21:01)
--- NOTE | 2020-10-14 08:59 | Medical Student Progress Note ---
Date of Service October 14, 2020 Assessment & Plan (1) Pyelonephritis: Sepsis secondary to pyelonephritis. Patient presented with fever, chills and right flank pain.CT scan in the ER revealed evidence of right sided pyelonephritis as well as possible left sided involvement without evidence of urinary tract obstruction. Urinalysis was positive for RBCs, WBCs and trace leukocyte esterase. Urine culture grew >100,00 CFU E. Coli. Sensitivities to follow. Blood culture did not grow any organism to date. WBC is 11.16, elevated from 10.22 at admission. Patient was febrile yesterday as well as today morning. IV Zosyn will be switched to IV ceftriaxone. Antibiotics may be further deescalated when sensitivities are available. Zofran PRN for nausea should be continued. Ketorolac PRN should be continued for pain and fever control. Consider IV Morphine if pain is refractory to Ketorolac. Pt's status would be monitored until she goes >24 hours without a fever. Switching to PO abx could then be considered depending on sensitivities. (2) Asthma: Mild intermittent - continue Albuterol PRN CXR performed yesterday without signs suggestive of pneumonia or fluid overload. (3) No known problems: Dispo: Continue IV antibiotics. anticipate d/c home in 24-48hrs pending blood cultures Fluids: Continue Lactated Ringer 100ml/hr given insensible loss from continued fevers Electrolyte: Electrolytes within normal limits Nutrition: Vegetarian diet DVT: Low risk for DVT given age and ambulatory status Code: Full Admission and Anticipated Discharge Date Admission Date: October 13, 2020 Supervising Attestation Medical Student Supervision Note: I was personally present during medical student patient encounter and independently interviewed and examined the patient and verified the heredia history and physical, reviewed labs and image studies, discussed the case with Fortunato Oakley and agree with the findings and care plan. Overall feeling better. Last temp spike this am. If fever free by tomorrow - anticipate d/c home. Subjective Patient is a 20 y/o F currently on HOD2 after admission for pyelonephritis. Patient states that she experienced waves of fever and chills yesterday as well as during encounter. Her back pain is still severe but becomes tolerable when she takes the ketorolac. She also acknowledges minor right abdominal pain which hasn't changed in intensity since admission. She mentions that the Zofran and Mountain Dew have helped with her nausea. Patient has also been experiencing headaches which occur when she is febrile. She hasn't had a bowel movement yet but she attributes this to not eating a lot since admission. Yesterday while she had fever, she experience mild shortness of breath which prompted her to use her albuterol inhaler. She thinks this was mainly due to her fever and chills and not necessarily an asthma exacerbation. She would like to know if her roommate/bf could come by to drop her OCPs as she starts the next pack tomorrow. Her mom is coming to visit her from [facility]. ROS: Patient denies any chest pain, shortness of breath, dysuria, hematuria, abnormal vaginal discharge, Review of Systems Constitutional: as per Subjective / HPI Respiratory: as per Subjective / HPI Cardiovascular: as per Subjective / HPI Gastrointestinal: as per Subjective / HPI Genitourinary: as per Subjective / HPI Physical Exam Constitutional: WD/WN, vitals as above + ill appearing (shaking and trembling in bed. Uncomfortable) Respiratory: normal respiratory effort, lungs clear to auscultation Cardiovascular: RRR, no murmur, no edema Gastrointestinal (Abdomen): Inspection/Auscultation: abdomen normal to inspection and normal bowel sounds Percussion/Palpation: + abdomen tender (mild tenderness in the right lower quadrant) Genitourinary: + CVA tenderness (Right sided CVA tenderness) Results & Data ([facility]) Vital Signs (Past 12 Hours) Vital Signs Temp Pulse Pulse Resp BP Pulse Ox 10/14/20 07:50 38.1 C H 10/14/20 06:56 36.6 C 95 H 18 125/82 100 10/14/20 00:49 37.8 C H 88 18 111/73 95 10/14/20 00:04 37.1 C 108 H 18 100/55 L 96 10/13/20 23:25 39.4 C H 120 H 20 105/64 97 10/13/20 21:58 39.4 C H
[2020-10-14] MEDS: MoRPHine SULFATE 2 MG/ML CARP IV PRN ×3 (09:37→19:29)
[2020-10-14] MEDS: LACTATED RINGER'S 1,000 ML IV SCH ×2 (10:35→21:00)
[2020-10-14] MEDS: cefTRIAXone SODIUM 2,000 MG in DEXTROSE 5% 50 ML IV SCH (12:00)
[2020-10-14] MEDS: ACETAMINOPHEN 500 MG TAB PO PRN (19:34)
[2020-10-15] MEDS: ACETAMINOPHEN 500 MG TAB PO PRN ×2 (04:26→17:24)
[2020-10-15] MEDS: MoRPHine SULFATE 2 MG/ML CARP IV PRN (05:03)
[2020-10-15] MEDS: LACTATED RINGER'S 1,000 ML IV SCH ×2 (07:08→17:25)
[2020-10-15] MEDS: KETOROLAC 30 MG/ML VIAL IV PRN ×3 (08:10→23:01)
--- NOTE | 2020-10-15 08:44 | Medical Student Progress Note ---
Date of Service October 15, 2020 Assessment & Plan (1) Pyelonephritis: Sepsis secondary to pyelonephritis. Patient presented with fever, chills and right flank pain. CT scan in the ER revealed evidence of right sided pyelonephritis as well as possible left sided involvement without evidence of urinary tract obstruction. Urinalysis was positive for RBCs, WBCs and trace leukocyte esterase. Urine culture grew >100,00 CFU E. Coli. Pansensitive to antibiotics Blood culture did not grow any organisms. WBC is 9.55, yesterday, it was 11.16 Patient's last measured fever was at 9:00pm yesterday with a reading of 38.5. Continue IV ceftriaxone. Antibiotics may be further deescalated to TMP/SMX once fever and chills stop. Zofran PRN for nausea should be continued. Ketorolac PRN should be continued for pain and fever control. Morphine was discontinued. Pt's status would be monitored until she goes >24 hours without a fever. Switching to PO TMP/SMX would then be considered. (2) Asthma: Mild intermittent CXR performed yesterday without signs suggestive of pneumonia or fluid overload. No acute episode of shortness of breath in the last 24 hours continue Albuterol PRN Admission and Anticipated Discharge Date Admission Date: Dispo: Continue IV antibiotics. anticipate d/c home in 24-48hrs pending blood cultures Fluids: Continue Lactated Ringer 100ml/hr given insensible loss from continued fevers Electrolyte: Electrolytes within normal limits Nutrition: Vegetarian diet DVT: Low risk for DVT given age and ambulatory status. SCD Code: Full October 13, 2020 Supervising Attestation Medical Student Supervision Note: I was personally present during medical student patient encounter and independently interviewed and examined the patient and verified the heredia history and physical, reviewed labs and image studies, discussed the case with Fortunato Oakley and agree with the findings and care plan. acute pyelonephritis - continue IV abx. anticipate d/c in am if fever free for 24hrs. Subjective Patient is a 20 y/o F currently on HOD3 after admission for pyelonephritis. Patient experienced waves of fever and chills yesterday as well as one episode around 4:00am. Patient has not had another episode since then. Patient has not had any trouble urinating, pain on urination or hematuria. She states that her back pain is still present but is better since admission. Her abdominal pain is still present as well. Patient denies any nausea and states that she has used the Zofran twice since admission and she believes it helps with her nausea. Her pain was refractory to the ketorolac so she used the morphine which she states helped with pain and discomfort. Her headaches are still present though she attributes this to dehydration. She still has not any bowel movement. She has not had any other episode of shortness of breath or felt the need to use her inhaler. she had a Zoom call with her proffesor because she was scheduled for acting auditions which she couldn't attend due to hospitalization. ROS: Patient denies any chest pain, palpitations, constipation, diarrhea, urinary urgency, abnormal vaginal discharge Review of Systems Constitutional: as per Subjective / HPI Respiratory: as per Subjective / HPI Cardiovascular: as per Subjective / HPI Gastrointestinal: as per Subjective / HPI Genitourinary: as per Subjective / HPI Physical Exam Constitutional: WD/WN, vitals as above mild back discomfort, laying comfortably in bed Respiratory: normal respiratory effort, lungs clear to auscultation Cardiovascular: RRR, no murmur, no edema Gastrointestinal (Abdomen): Inspection/Auscultation: abdomen normal to inspection and normal bowel sounds Percussion/Palpation: + abdomen tender (mild tenderness in the right lower quadrant) Genitourinary: + CVA tenderness (mild Right sided CVA tenderness) Results & Data ([facility]) Vital Signs (Past 12 Hours) Vital Signs Temp Pulse Resp BP Pulse Ox 10/15/20 07:47 37.2 C 65 16 109/72 98 10/15/20 05:21 36.8 C 10/14/20 22:58 36.3 C L 10/14/20 22:50 36.6 C 65 16 116/78 98 10/14/20 21:00 38.5 C H
[2020-10-15 08:45] LABS: Hematocrit (blood only) 35.5 % (37-47); Hemoglobin 11.7 g/dL (12.0-16.0); Mean Corpuscular Hemoglobin 30.4 pg (25-34); Mean Corpuscular Volume 92.2 fL (80-100); Mean Platelet Volume 9.8 fL (7.4-10.4); Platelet Count 202 K/uL (130-400); RDW Standard Deviation 44.5 fL (36.4-46.3); Red Blood Count 3.85 M/uL (4.2-5.4); White Blood Count 9.55 K/uL (4.8-10.8)
[2020-10-15 09:23] LABS: BUN Creatinine Ratio 7.3 (10-20); Blood Urea Nitrogen 4 mg/dl (7-18); Calcium 8.7 mg/dl (8.5-10.1); Carbon Dioxide 26 mmol/L (21-32); Chloride 108 mmol/L (98-107); Est GFR (African American) > 150.0; Est GFR (Non-African American) 137.5; Glucose 80 mg/dl (70-99); Potassium 3.4 mmol/L (3.5-5.1); Sodium 139 mmol/L (136-145)
[2020-10-15] MEDS: cefTRIAXone SODIUM 2,000 MG in DEXTROSE 5% 50 ML IV SCH (09:41)
[2020-10-15] MEDS: LORATADINE 10 MG TAB PO SCH (09:41)
[2020-10-15] MEDS ORDERED: POTASSIUM CHLORIDE CRTAB 20 MEQ TABCR PO ONE (10:15)
[2020-10-16] MEDS ORDERED: MoRPHine SULFATE 2 MG/ML CARP IV STA (02:57)
[2020-10-16] MEDS: LACTATED RINGER'S 1,000 ML IV SCH ×2 (03:03→15:51)
[2020-10-16 07:34] LABS: Hematocrit (blood only) 36.7 % (37-47); Hemoglobin 12.8 g/dL (12.0-16.0); Mean Corpuscular Hemoglobin 31.4 pg (25-34); Mean Corpuscular Hgb Conc 34.9 g/dL (32-36); Mean Corpuscular Volume 90.2 fL (80-100); Mean Platelet Volume 9.7 fL (7.4-10.4); Platelet Count 264 K/uL (130-400); RDW Coefficient of Variation 12.8 % (11.5-14.5); RDW Standard Deviation 42.2 fL (36.4-46.3); Red Blood Count 4.07 M/uL (4.2-5.4); White Blood Count 9.67 K/uL (4.8-10.8)
[2020-10-16] MEDS: KETOROLAC 30 MG/ML VIAL IV PRN ×2 (07:54→16:08)
[2020-10-16] MEDS: LORATADINE 10 MG TAB PO SCH (07:58)
--- NOTE | 2020-10-16 08:11 | Medical Student Progress Note ---
Date of Service October 16, 2020 Assessment & Plan (1) Pyelonephritis: Sepsis secondary to pyelonephritis. Patient presented with fever, chills and right flank pain. CT scan in the ER revealed evidence of right sided pyelonephritis as well as possible left sided involvement without evidence of urinary tract obstruction. Urinalysis was positive for RBCs, WBCs and trace leukocyte esterase. Urine culture grew >100,00 CFU E. Coli. Pansensitive to antibiotics Blood culture did not grow any organisms. WBC is 9.67, yesterday it was 9.55. Patient's last measured fever was this morning, with a reading of 38.5. Continue IV ceftriaxone. Antibiotics may be further deescalated to TMP/SMX once fever and chills stop. Zofran PRN for nausea should be continued. Ketorolac PRN should be continued for pain and fever control. Morphine PRN available if pain is refractory to Ketorolac. Consider switching to PO TMP/SMX after afebrile > 24 hours and consider discharge. (2) Asthma: Mild intermittent CXR performed yesterday without signs suggestive of pneumonia or fluid overload. No acute episode of shortness of breath in the last 24 hours continue Albuterol PRN Admission and Anticipated Discharge Date Admission Date: October 13, 2020 Supervising Attestation Medical Student Supervision Note: I was personally present during medical student patient encounter and independently interviewed and examined the patient and verified the heredia history and physical, reviewed labs and image studies, discussed the case with Fortunato Oakley and agree with the findings and care plan. Continue IV abx since continuing to spike fever d/c home on PO abx once fever free for 24hrs Subjective Patient is a 20 y/o F currently on HOD4 for pyelonephritis. Patient states feeling overall better since admission. She experienced another febrile episode last night. Her back pain was intolerable last night, refractory to ketorolac but well controlled with morphine. She also develop pain in her right teran last night concurrently with the back pain, which was controlled with the morphine. She had a bowel movement earlier today which she described as watery. Her headaches are still present and occur simultaneously with her fevers. ROS: Patient denies SOB, chest pain, dyspnea, constipation, dysuria, hematuria or abnormal vaginal discharge. Review of Systems Constitutional: as per Subjective / HPI Respiratory: as per Subjective / HPI Cardiovascular: as per Subjective / HPI Gastrointestinal: as per Subjective / HPI Genitourinary: as per Subjective / HPI Physical Exam Constitutional: WD/WN, vitals as above Respiratory: normal respiratory effort, lungs clear to auscultation Cardiovascular: RRR, no murmur, no edema Gastrointestinal (Abdomen): Inspection/Auscultation: abdomen normal to inspection and normal bowel sounds Percussion/Palpation: + abdomen tender (mild tenderness in the right lower quadrant) Genitourinary: + CVA tenderness (mild Right sided CVA tenderness) Results & Data ([facility]) Vital Signs (Past 12 Hours) Vital Signs Temp Pulse Resp BP Pulse Ox 10/16/20 07:37 37.8 C H 82 16 114/70 96 10/16/20 07:19 38.0 C H 98 H 18 113/79 98 10/16/20 03:03 37.6 C H 10/15/20 23:11 37.3 C 71 18 131/90 99
[2020-10-16 08:12] LABS: BUN Creatinine Ratio 5.6 (10-20); Blood Urea Nitrogen 3 mg/dl (7-18); Calcium 9.1 mg/dl (8.5-10.1); Carbon Dioxide 24 mmol/L (21-32); Chloride 106 mmol/L (98-107); Creatinine Clr Calc Pharmacy 131.3 ml/min; Est GFR (African American) > 150.0; Est GFR (Non-African American) 131.9; Glucose 87 mg/dl (70-99); Potassium 3.7 mmol/L (3.5-5.1); Sodium 137 mmol/L (136-145)
[2020-10-16] MEDS: cefTRIAXone SODIUM 2,000 MG in DEXTROSE 5% 50 ML IV SCH (09:26)
[2020-10-16] MEDS: ACETAMINOPHEN 500 MG TAB PO PRN (15:55)
[2020-10-17] MEDS: ACETAMINOPHEN 500 MG TAB PO PRN (05:59)
[2020-10-17] MEDS: LACTATED RINGER'S 1,000 ML IV SCH (06:00)
[2020-10-17 06:12] LABS: Basophils # (auto) 0.01 K/uL (0-0.2); Basophils % (auto) 0.1 %; Eosinophils # (auto) 0.17 K/uL (0-0.5); Eosinophils % (auto) 2.1 %; Hematocrit (blood only) 36.5 % (37-47); Hemoglobin 12.4 g/dL (12.0-16.0); Immature Granulocytes # (auto) 0.01 K/uL (0.00-0.02); Immature Granulocytes % (auto) 0.1 %; Lymphocytes # (auto) 1.74 K/uL (1.2-3.4); Mean Corpuscular Hemoglobin 30.6 pg (25-34); Mean Corpuscular Volume 90.1 fL (80-100); Mean Platelet Volume 9.1 fL (7.4-10.4); Monocytes % (auto) 8.5 %; Neutrophils # (auto) 5.64 K/uL (1.4-6.5); Neutrophils % (auto) 68.2 %; Platelet Count 268 K/uL (130-400); RDW Coefficient of Variation 12.6 % (11.5-14.5); RDW Standard Deviation 41.8 fL (36.4-46.3); Red Blood Count 4.05 M/uL (4.2-5.4); White Blood Count 8.27 K/uL (4.8-10.8)
[2020-10-17 06:42] LABS: Blood Urea Nitrogen 5 mg/dl (7-18); Calcium 8.9 mg/dl (8.5-10.1); Carbon Dioxide 25 mmol/L (21-32); Chloride 108 mmol/L (98-107); Creatinine Clr Calc Pharmacy 140.9 ml/min; Est GFR (African American) > 150.0; Glucose 76 mg/dl (70-99); Potassium 3.8 mmol/L (3.5-5.1); Sodium 140 mmol/L (136-145)
[2020-10-17] MEDS: LORATADINE 10 MG TAB PO SCH (08:00)
--- NOTE | 2020-10-17 08:18 | Discharge Summary ---
Date of Service October 17, 2020 Admission HPI Per Admitting Provider Patient is a 20 year old female with PMHx Asthma that presents with 3 day history of R low back pain with worsening progression and fever of 101F on day of admission. Patient notes that on 10/09/20 she started experiencing some low back pain worse on the R than L. She states that she recently switched control 1 month ago as her previous control gave her back pain and she felt that this current one was causing the same symptoms. Earlier this morning she experienced nausea which progressively worsened until around 20:00 she was having fevers, chills, and rigors. She also felt that she was having more bowel movements today. She notes that she took her temperature around 22:00 and it was 101F. Upon presentation to the ED she was found to be febrile with TMax 39.6C and was given IV tylenol and NSS boluses. She was also given Toradol for her pain. CT imaging was concerning for a R sided pyelonephritis and early onset of L sided pyelo, however, interestingly enough her UA was relatively clean and negative for acute infections. Upon my evaluation patient stated that she was feeling significantly better and that her pain had improved to a 4/10. She currently still notes fever, occasional chills, R low back pain, R low abdominal pain. She denies chest pain, SOB, headache, nausea, vomiting, diarrhea. Med Hx: Asthma Surg Hx: Bilateral inguinal hernia repair and umbilical hernia repair at age 5 Soc Hx: No tobacco or illicit drug use. Has roughly 16 shots of vodka on the weekends. Notes she is sexually active with her boyfriend alone, last coitus 10/09/20. Recently checked for STDs 1 month ago which was negative and has only been sexually active with aforementioned boyfriend since that time. No concerns of infidelity. Admission Exam Per Admitting Provider Constitutional: well developed and well nourished; no acute distress Eyes: PERRL, conjunctivae normal, anicteric sclerae ENMT: external ear and nose normal, oropharynx normal Neck: trachea midline, no thyromegaly Respiratory: normal respiratory effort, lungs clear to auscultation Cardiovascular: RRR, no murmur, no edema Gastrointestinal (Abdomen): Inspection/Auscultation: abdomen normal to inspection and normal bowel sounds; abdomen not distended Percussion/Palpation: + abdomen tender (slight TTP in the RLQ) and abdomen soft; no guarding and abdomen not rigid Musculoskeletal: no cyanosis or clubbing, extremities motor strength 5/5 Skin: no rashes, warm and dry Neurologic: PERRL, EOMI, accommodation nl, no face palsy, no dysarthria Psychiatric: A+Ox3, euthymic affect Genitourinary: + CVA tenderness (on the r ) Principal Diagnosis Pyelonephritis Discharge Exam General: No acute distress HEENT: Normocephalic atraumatic Neck: Normal vision inspection, trachea midline Cardiac: Regular rate and rhythm I did not appreciate any murmurs rubs or gallops, normal S1, S2, no pedal edema, no calf tenderness Respiratory: Clear to auscultation bilaterally symmetrical chest expansion I did not appreciate significant wheezes, rales, rhonchi GI: Soft nontender, nondistended, bowel sounds present all 4 quadrants, no CVA tenderness Neuro: Alert and oriented x4 Psych: Calm cooperative with interview Discharge Data Allergies Allergy/AdvReac Type Severity Reaction Status Date / Time No Known Drug Allergies Allergy . Verified 10/13/20 03:48 Consultations 10/13/20 01:19 ED Decision to Admit Stat Ordered Studies 10/12/20 23:16 CT abd pelvis IV con only Urgent Hospital Course (1) Pyelonephritis: Patient is a 20 year old female with PMHx Asthma that presents with 3 day history of R low back pain with worsening progression and fever of 101F on day of admission. CT imaging of abdomen and pelvis concerning for R sided Pyelonephritis. Sepsis secondary to R Pyelonephritis On presentation CT/Ab pelvis statrad concerning for R pyelonephritis with possibly early development of L pyelonephritis. UA appears contaminated with epithelial cells, but otherwise less indicative of infection. Lactic 2.8 on admission, Urine culture demonstrating pansensitive e-coli. Patient was admitted for further monitoring and IV antibiotics. Throughout her admission she did well, tolerating her therapy. After being afebrile for 24 hours, with adequate pain control she was DC'd to complete a 3-day course of cefdinir -Day 4 of IV antibiotics plan to transition to p.o. augmentin on DC to complete 10-day course of antibiotics Asthma -Albuterol PRN Total Time Total Time Spent Total Time Spent (In Minutes): 36 Discharge Plan Discharge Items Patient Disposition: Home - Self-Care Reason For Visit: PYELONEPHRITIS Discharge Diagnosis: pyelonephritis (kidney infection) Activity: Per Instructions section Non-emergency contact: Primary Care Provider Call non-emergency contact if: you have any medication questions, your pain is worsening and your temperature is above 101 Follow-up/Referrals: [facility] [Primary Care Provider] - (1-2 weeks after discharge) Diet: Regular Addtl Attending Provider Instructions: You were admitted to the hospital for a kidney infection. You were started on IV antibiotics, and after several days of antibiotics your symptoms got better. We checked for bacteria in other places, such as your blood. There was not bacteria anywhere other than your urinary tract. You were felt to be safe for discharge home with the following recommendations: 1) You were discharged with oral antibiotics called augmentin . You will take this (one pill ever 12 hours) until the prescription is gone. This was sent to [facility] ae. 2) You should have follow up with [facility] within 7-14 days after discharge. This is so that they can check and see how you are feeling. 3) You can take Tylenol 1000 milligrams every 8 hours, and ibuprofen 600 milligrams every 6 hours, as needed for pain. If you have any continued episodes of fevers over 100.4 degrees, chest pain, trouble breathing, worsening of your back pain, please seek urgent medical attention. Pending Studies at Discharge: No Stand-Alone Forms: My [facility], Smoking Cessation Medications and DC Order Prescriptions: New amoxicillin-pot clavulanate [Augmentin] 875-125 mg tablet 1 tab PO BID 6 Days Qty: 12 RF: 0 Continued norethindrone-e.estradiol-iron [[place] [facility] 07/29 (28)] 1 mg-20 mcg (21)/75 mg (7) Tablet 1 tab PO DAILY RF: 0 albuterol sulfate [Ventolin HFA] 90 mcg/actuation Hfa Aerosol Inhaler 2 puff INHALATION DIRECTED PRN (Reason: Shortness Of Breath Or Wheezing) RF: 0 Discharge Orders: Discharge Order (Routine); Ordered 10/17/20 Ordered By: Mao Gonsalez/Other Patient Handouts: ED Pyelonephritis, Female (Adult) Admission Data Admit Date/Time: 04/06/21 02:23 Attending Provider: Kayley Ha Admit Provider: Josef Lopez Primary Care Provider: [facility] Other Providers: Flip Cardoso Other Interventions: Discharge Summary Assessment (RN) Last Done: 10/17/20 11:39 Supervising Physician Co-Signing Physician Notes Resident Physician Supervision Note: I independently interviewed and examined the patient and verified the heredia history and physical, reviewed labs and image studies, discussed the case with the resident Dr. Mao Baker and agree with the findings and care plan. Resident Activity Tracking Resident Involvement: Resident Care Provided Care Provided: Adult Hospital Medicine
[2020-10-17] MEDS: cefTRIAXone SODIUM 2,000 MG in DEXTROSE 5% 50 ML IV SCH (09:49)
--- NOTE | 2020-10-18 05:20 | Billing Data ---
Date of Service October 18, 2020 Coding Level of Care Code 93832 Initial Inpt Care Lvl 2
== END 2020-10-17 13:28 | disposition home or self-care (01) | DRG 872 ==
LOC: ED 22:03 → SUATTDRO 10-13 02:23 → 2N 10-13 02:23 → 3N 10-14 00:42